=== PATIENT | female | born 1975 | race African-American/Black ===

== ENCOUNTER 2020-05-27 08:00 | Outpatient (CLI) | payer OTHER ==
[2020-05-27 18:56] LABS: ALBUMIN 4.2 g/dL (3.2-5.5); ALBUMIN/GLOBULIN RATIO 1.1 (1.0-2.2); BILIRUBIN,TOTAL 0.8 mg/dL (0.2-1.0); CALCIUM 9.8 mg/dL (8.5-10.3); CREATININE 0.8 mg/dL (0.4-1.0); TOTAL PROTEIN 8.2 g/dL (6.7-8.2)
[2020-05-27 19:12] LABS: BASOPHILS # (AUTO) 0.1 10^3/uL (0.0-0.1); BASOPHILS % (AUTO) 1.6 %; EOSINOPHILS # (AUTO) 0.2 10^3/uL (0.0-0.7); EOSINOPHILS % (AUTO) 4.5 %; HGB - HEMOGLOBIN 14.2 g/dL (12.0-16.0); LYMPHOCYTES # (AUTO) 1.7 10^3/uL (1.5-3.5); LYMPHOCYTES % (AUTO) 44.1 %; MEAN CORPUSCULAR HEMOGLOBIN 29.2 pg (27.0-31.0); MEAN CORPUSCULAR HGB CONC 32.1 g/dL (32.0-36.0); MEAN CORPUSCULAR VOLUME 90.9 fL (81.0-99.0); MEAN PLATELET VOLUME 10.7 fL (7.9-10.8); MONOCYTES # (AUTO) 0.3 10^3/uL (0.0-1.0); MONOCYTES % (AUTO) 8.8 %; NEUTROPHILS # (AUTO) 1.5 10^3/uL (1.5-6.6); NEUTROPHILS % (AUTO) 40.7 %; PLT - PLATELET COUNT 461 10^3/uL (130-450); RED BLOOD COUNT 4.86 10^6/uL (4.20-5.40); RED CELL DISTRIBUTION WIDTH 11.7 % (12.0-15.0); WHITE BLOOD COUNT 3.8 x10^3/uL (4.8-10.8)
[2020-05-27 19:52] LABS: FREE T4 (FREE THYROXINE) 2.07 ng/dL (0.58-1.64)
== END 2020-05-27 08:01 | disposition home or self-care (01) ==
LOC: LAB.WCP 08:00
PROVIDERS: ATTEND Nurse Practitioner Family
DX: R53.83 Other fatigue (principal); Z79.02 Long term (current) use of antithrombotics/antiplatelets
CPT/HCPCS: 36415; 80050; 82306; 84439

== ENCOUNTER 2020-07-23 08:00 | Outpatient (CLI) | payer OTHER ==
[2020-07-23 18:13] LABS: BASOPHILS # (AUTO) 0.1 10^3/uL (0.0-0.1); BASOPHILS % (AUTO) 1.2 %; EOSINOPHILS # (AUTO) 0.4 10^3/uL (0.0-0.7); EOSINOPHILS % (AUTO) 9.6 %; HCT - HEMATOCRIT 42.3 % (37.0-47.0); HGB - HEMOGLOBIN 13.7 g/dL (12.0-16.0); MEAN CORPUSCULAR HEMOGLOBIN 29.1 pg (27.0-31.0); MEAN CORPUSCULAR HGB CONC 32.4 g/dL (32.0-36.0); MEAN CORPUSCULAR VOLUME 89.8 fL (81.0-99.0); MEAN PLATELET VOLUME 11.1 fL (7.9-10.8); MONOCYTES # (AUTO) 0.4 10^3/uL (0.0-1.0); MONOCYTES % (AUTO) 10.1 %; NEUTROPHILS # (AUTO) 1.3 10^3/uL (1.5-6.6); NEUTROPHILS % (AUTO) 31.1 %; PLT - PLATELET COUNT 403 10^3/uL (130-450); RED BLOOD COUNT 4.71 10^6/uL (4.20-5.40); RED CELL DISTRIBUTION WIDTH 12.2 % (12.0-15.0); WHITE BLOOD COUNT 4.2 x10^3/uL (4.8-10.8)
[2020-07-23 19:40] LABS: THYROID STIMULATING HORMONE 0.01 uIU/mL (0.34-5.60)
[2020-07-23 20:13] LABS: FREE T4 (FREE THYROXINE) 1.84 ng/dL (0.58-1.64)
== END 2020-07-23 23:59 | disposition home or self-care (01) ==
LOC: LAB.WCP 08:00
PROVIDERS: ATTEND Family Medicine
DX: E03.9 Hypothyroidism, unspecified (principal); Z79.02 Long term (current) use of antithrombotics/antiplatelets
CPT/HCPCS: 36415; 84439; 84443; 85025

== ENCOUNTER 2023-12-27 12:51 | Emergency (ER) | payer OTHER ==
[2023-12-27 13:14] VITALS: O2SAT 100
--- NOTE | 2023-12-27 14:38 | ED Physician Documentation ---
History of Present Illness - Stated complaint Stated Complaint: LT FOOT/LOWER LEG SWOLLEN - Chief complaint Chief Complaint: Ext Problem - History obtained from History obtained from: Patient - Additonal information Additional information: Patient is a 48-year-old female with no significant past medical history. Patient presents with left lower leg swelling. Patient symptoms came on over the past week. She notes she has been moving a lot and standing a lot more with some heavy lifting. She denies any trauma to the area. She denies any swelling to her right leg. She denies any redness to the area. PD PAST MEDICAL HISTORY - Past Medical History Past Medical History: Yes - Past Surgical History Past Surgical History: No - Present Medications Home Medications: Ambulatory Orders Medication Instructions Recorded Confirmed Meclizine HCl [Antivert] 25 mg PO Q6HR PRN #20 tablet 11/22/14 Compress.stocking,Knee,Reg,Med 1 each MC DAILY #2 each 12/27/23 [T.e.d. Anti-Embolism Stocking] - Allergies Allergies/Adverse Reactions: Allergies Allergy/AdvReac Type Severity Reaction Status Date / Time No Known Drug Allergies Allergy Verified 12/27/23 12:57 - Social History Does the pt smoke?: No Smoking Status: Never smoker Does the pt drink ETOH?: Yes Does the pt have substance abuse?: No - Immunizations Immunizations are current?: Yes - POLST Patient has POLST: No PD ED PE NORMAL - Vitals Vital signs reviewed: Yes - General General: Alert and oriented X 3 - HEENT HEENT: Atraumatic - Neck Neck: Supple, no meningeal sign - Cardiac Cardiac: RRR, No murmur, No gallop, No rub - Respiratory Respiratory: No respiratory distress, Clear bilaterally - Abdomen Abdomen: Normal bowel sounds, Soft, Non tender, Non distended - Female Female : Deferred - Rectal Rectal: Deferred - Derm Derm: Normal color, Warm and dry, No rash - Extremities Extremities: No deformity, Other (Mild swelling noted to left leg with 1+ pitting edema extending from toes to pretibial region full range of motion intact no pain on palpation compartments are soft with pulses DP PT 2+. Good capillary refill with no appreciable erythema or bruising noted to the area with no obvious deformity exam) - Neuro Neuro: Alert and oriented X 3 Eye Opening: Spontaneous Motor: Obeys Commands Verbal: Oriented GCS Score: 15 Results - Vitals Vitals: Vital Signs - 24 hr 12/27/23 12/27/23 12:57 16:26 Temperature 36.5 C 36.2 C L Heart Rate 65 58 L Respiratory 16 16 Rate Blood Pressure 144/85 H 144/80 H O2 Saturation 100 100 Oxygen O2 Source Room air - Rads (name of study) CXR Relevant Findings:: EMP independent interpretation of test PD Medical Decision Making - ED course Complexity details: reviewed results ED course: Patient is a 48-year-old female with past medical history as listed above presents to the emergency department with left leg swelling. She notes she has been on her legs a lot more recently and she suspects this is what caused but given some pain to the dorsal foot and left posterior knee she wanted to come in to be evaluated she denies any recent trauma no bruising no redness no fevers or chills associated with this. She is on a diuretic for past medical history of dizziness symptoms and takes triamterene and hydrochlorothiazide. She notes she has not missed this medication no chest pain or shortness of breath associated with symptoms. Vital stable on arrival. Physical exam shows 1+ pitting edema left greater than right lower leg swelling. No significant swelling beyond knee. No erythema or warmth and compartments are soft on examination. Ultrasound here in the emergency department shows no signs of DVT additionally discussed with patient we will obtain chest x-ray given history of diuretics to ensure no signs of fluid overload. Chest x-ray shows no acute cardiopulmonary process and patient will be sent home with compression stockings above the knee to help with swelling. Patient instructed whenever she is at rest to elevate her legs to continue taking her diuretic at home and return with any worsening leg pain or swelling. Patient understands and is agreeable with this plan. Departure - Departure Disposition: Home, Self Care Clinical Impression: Swelling of left lower extremity Condition: Good Prescriptions: Compress.stocking,Knee,Reg,Med [T.e.d. Anti-Embolism Stocking] 1 each MC DAILY #2 each Comments: You were seen here in the emergency department for your left leg swelling. Your ultrasound here showed no signs of clot I added on a chest x-ray to ensure no signs of fluid overload these are both reassuring findings. Your symptoms most likely secondary to excessive standing. Continue on your diuretic at home as prescribed and return with any shortness of breath chest pain worsening leg swelling fevers discoloration to your lower leg or any other new or worsening symptoms. Forms: PCP List
--- NOTE | 2023-12-27 14:50 | Ultrasound Report ---
PROCEDURE: Duplex Ext Veins Left INDICATIONS: Px/Swelling TECHNIQUE: Real-time imaging, as well as color and pulse Doppler interrogation, were performed of the lower extr emity deep veins from the inguinal ligament to the popliteal fossa. Attempted visualization of the ca lf veins was performed. COMPARISON: None. FINDINGS: The deep veins are normally compressible, and free of intraluminal thrombus. Color and pu lse Doppler demonstrate normal phasic intraluminal flow. There is normal augmentation response to di stal compression maneuver. IMPRESSION: No deep venous thrombosis of the left lower extremity. Reviewed by: Jean Schwarz MD on 12/27/2023 2:48 PM PDT Approved by: Jean Schwarz MD on 12/27/2023 2:48 PM PDT Station ID: [id number]
--- NOTE | 2023-12-27 15:14 | XRAY Report ---
PROCEDURE: Chest 1V INDICATIONS: concern for fluid overload TECHNIQUE: One view of the chest was acquired. COMPARISON: None. FINDINGS: Surgical changes and devices: None. Lungs and pleura: No pleural effusions or pneumothorax. Lungs are clear. Mediastinum: Mediastinal contours appear normal. Heart size is normal. Bones and chest wall: No suspicious bony lesions. Overlying soft tissues appear unremarkable. IMPRESSION: No acute cardiopulmonary process. Reviewed by: Jean Schwarz MD on 12/27/2023 3:13 PM PDT Approved by: Jean Schwarz MD on 12/27/2023 3:13 PM PDT Station ID: [id number]
[2023-12-27 16:30] VITALS: BP 144/80
== END 2023-12-27 16:26 | disposition home or self-care (01) ==
LOC: ED 12:51
DX: R22.42 Localized swelling, mass and lump, left lower limb (principal); Z79.899 Other long term (current) drug therapy
CPT/HCPCS: 99283; 99284